=== PATIENT | male | born 1940 | race Caucasian/White ===

== ENCOUNTER 2017-08-19 13:30 | Observation (INO) | payer MEDICARE ==
[~2017-08-19] VITALS: Ht 188 cm; Wt 102.3 kg
[~2017-08-19 13:30] MED LIST: ALLOPURINOL300 M1 PO; ALTACE10 MG PO; CLOPIDOGREL75 M2 PO; COLCRYS0.6 M1 PO; ECOTRIN325 MG PO; FUROSEMIDE 20MG20 MG FT; ISOSORBIDE MONO30 MG PO; METOPROLOL25 MG PO
[2017-08-19 13:50] VITALS: BP 150/98
--- NOTE | 2017-08-19 14:19 | RADIOLOGY REPORT PS360 ---
CT HEAD W/O CONTRAST COMPARISON: None HISTORY: Right-sided weakness, severe headache TECHNIQUE: Multiaxial scans obtained from base skull to the vertex and were performed without contrast. FINDINGS: The base of skull is normal to mild chronic left-sided mastoiditis. The basilar cisterns are prominent. There is mild diffuse ventriculomegaly. The sylvian fissures and cortical sulci are. There are mild periventricular hypodensities consistent with chronic ischemic white changes. There is no ischemic infarct or bleed and there are no extra-axial fluid collections. Bony calvarium appears intact. IMPRESSION: Findings of moderate cortical atrophy and mild chronic white matter changes, no acute intracranial pathology noted .
--- NOTE | 2017-08-19 14:20 | RADIOLOGY REPORT PS360 ---
CHEST(2 VIEWS-NOT PORTABLE) COMPARISON: Portable upright chest 07/04/2016 HISTORY: Generalized weakness TECHNIQUE: PA and lateral chest FINDINGS: The lung sullivan are well expanded and appear clear of infiltrate. Is mild aortic tortuosity but no cardiomegaly. There are sternal wire sutures and surgical clips seen from previous bypass procedure. IMPRESSION: Nonacute chest findings
[2017-08-19 14:35] LABS: HEMOGLOBIN 14.9 g/dL (14.1-18.0); LYMPH # 2.2 K/mm3 (0.7-4.5); LYMPH % 40.4 % (10-50)
[2017-08-19 15:03] LABS: BUN 12 mg/dL (7-18)
--- NOTE | 2017-08-19 15:04 | Emergency Room Report ---
History of Present Illness Time Seen by MD Menjivar Presenting Problem in Triage Pt arrived:Walked Presenting Problem:RIGHT SIDED WEAKNESS, ONSET; CONFUSION, HEADACHE SUDDEN ONSET Onset of symptoms date/time:/ or onset unknown for:MEDICAL HX UNKNOWN Treatment Prior to Arrival: REGULATORY INTERNSHIP Provided by: Sepsis Risk Assessment: Temp: 97.8 B/P: 129/87 MAP: 115 Pulse: 55 Resp: 16 Recent fever? N Clinical Suspician of Infection? N Mental Status: 1 - Regular (Normal Baseline) Sepsis Risk:Low Sepsis Risk Have you (or family members/close friends) recently traveled outside the [place]? N If Yes, where/when: Have you had exposure to infectious disease within the past month? TB? Other? 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 He was brought to the Ed and underwent a stat ct scan with no acute findings. On my post CT exam there was no acute findings. his weakness has resolved and he had no focal deficites. Source patient, RN notes reviewed, family Exam Limitations no limitations ALLERGIES Coded Allergies: No Known Allergies (07/04/16) Home Medications Reported Medications Colchicine (Colcrys 0.6MG) 0.6 MG PO BID 30 Days CLOPIDOGREL BISULFATE (Clopidogrel) 75 MG PO DAILY 30 Days Isosorbide Mononitrate (Isosorbide Mononitrate ER) 30 MG PO DAILY 30 Days Allopurinol 300 MG PO DAILY 90 Days Furosemide (Furosemide) 40 MG FT DAILY PRN FLUID 30 Days Aspirin (Ecotrin 325MG Tab) 325 MG PO DAILY Metoprolol Tartrate (Metoprolol) 50 MG PO DAILY Ramipril (Altace 10MG) 10 MG PO DAILY History Medical History General Angina: Yes CO: Yes Hypertension? No Hyperlipidemia? No CHF? Yes COPD? No Asthma? No Hernia? No CVA? No Seizures? No Diabetes? No UTI? Yes Stones? No GB Disease: No Hepatitis? No Cataracts? No Glaucoma? No MRSA? No TB? No Cancer? No Immunization Hx Ped.Immunizations UTD Yes DT/Tetanus 5-10 YRS Surgical Hx Previous Surgery?Y Orthopedic Coronary Artery Bypass STENTS ANGIOPLASTY ANYEURISM Family History Family Hx Diabetes Yes CAD Yes Hypertension Yes Hyperlipidemia Yes Cancer No TB No Social History Smoking Hx Smoker: Never Smoker Tobacco: No Type N/A Are you/the child exposed to second-hand smoke: No Alcohol Alcohol: No Review of Systems All Other Systems Reviewed and Negative Constitutional no symptoms reported Eyes no symptoms reported ENT no symptoms reported. Respiratory no symptoms reported Cardiovascular no symptoms reported Gastrointestinal no symptoms reported Genitourinary no symptoms reported. Musculoskeletal no symptoms reported Skin no symptoms reported Psychiatric/Neurological see HPI, weakness Physical Exam Vital Signs Vital Signs Date Time Temp Pulse Resp B/P Pulse O2 O2 Flow FiO2 Ox Delivery Rate 08/19 1447 55 16 129/87 98 08/19 1350 97.8 56 18 150/98 97 - WBC >12,000 or <4,000 or 10% bands? 2 or more SIRS Criteria Met? B/P:129/87 MAP:115 Creatinine >2.0? UA output<0.5ml/kg/hr for 2 hrs? Platelet count >100,000? Lactate >2.0mmol/1? INR >1.2 or PTT > than 60 sec? Evidence of Organ Dysfunction? Provider documented clinical suspician of infection? N Sepsis Criteria Count: 0 Sepsis Risk: Low Sepsis Risk General Appearance normal appearance, WD/WN Eye Exam - bilateral eye normal exam, bilateral eye PERRL, bilateral eye EOMI Ear, Nose, Throat hearing grossly normal, normal ENT inspection Neck normal inspection, non-tender, supple, full range of motion Respiratory Status Yes: trachea midline, chest symmetrical, non tender chest. No: respiratory distress. Lung Sounds bilateral: normal breath sounds, lungs clear. 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 Reflexes Reflexes normal Yes Mental status normal mood/affect Skin intact, normal color, warm/dry Medical Decision Making LABS/Meds/Orders Pt receiving controlled substance in ED? No Results/Orders Laboratory Tests 08/19/17 1425: Sodium Pending, Potassium Pending, Chloride Pending, Carbon Dioxide Pending, BUN Pending, Creatinine Pending, Estimated Creat Clear Pending, Estimated GFR (MDRD) Pending, Glucose Pending, Calcium Pending, Total Bilirubin Pending, AST Pending, ALT Pending, Alkaline Phosphatase Pending, Creatine Kinase Pending, CK-MB (CK-2) Rel Index Pending, CK and CKMB Interp Pending, Troponin I Pending, Total Protein Pending, Albumin Pending, Globulin Pending, Albumin/Globulin Ratio Pending, WBC 5.5, RBC 4.66, Hgb 14.9, Hct 44.8, MCV 96.0, RDW 13.0, Plt Count 192, MPV 9.3, Gran % 45.5, Gran # 2.5, Lymphocytes % 40.4, Monocytes % 6.9, Eosinophils % 5.3, Basophils % 2.0, Lymphocytes # 2.2, Monocytes # 0.4, Eosinophils # 0.3, Basophils # 0.1, PUBS MCHC 33.3, MCH 32.0 H Current Medication Orders Sig/Jessi Start time Last Medication Dose Route Stop Time Status Admin Sodium Chloride 10 ML PRN PRN 08/19 1400 AC IV 08/20 1356 Orders Procedure Date/time Status DIET-NOTHING BY MOUTH 08/19 D Active ELECTROCARDIOGRAM REQUEST 08/[address] HEAD REQ 08/19 1356 Complete IV SALINE LOCK 08/19 1356 Active CBC WITH AUTO DIFF 08/19 1356 Complete CARDIAC ENZYMES 08/19 1356 Active CHEM 12 PROFILE 08/19 1356 Active 12 LEAD EKG-LINUS (INITIAL) 08/19 UNK Active CM/EKG CM/EKG EKG sinus bradycardia 51/m AV block and new LEFT bundle branch block. Departure Departure Time of Disposition 1501 Disposition Still a Patient Clinical Impression Primary Impression: TIA (transient ischemic attack) Secondary Impressions: CAD (coronary artery disease), Left bundle branch block ( LBBB) on electrocardiogram Condition STABLE Referrals Killian SMITH,A.C. (Family) Additional Instructions I discussed with the patient's family transferring him to [facility] stroke [facility] and they preferred to stay in [facility]. I contacted Dr. Srikanth Conley who agreed to admit the patient for observation and further workup. Discharge Counseling Counseled pt/family regarding diagnosis, test results, medications/RX, home care, follow up needs ED Critical Care Critical Care No If Critical Care minutes are documented, the time involved in the performance of seperately reportable procedures was not counted toward critical care time documented. I directly delivered medical care to this critically ill and/or injured patient. Timely evaluation and treatment was necessary to address the significant organ system(s) dysfunction present in this patient.
[2017-08-19 15:09] LABS: GFR (ESTIMATED) 73 ML/MIN (>60)
[2017-08-19 16:04] VITALS: BP 147/79
[2017-08-19 19:31] VITALS: BP 122/70
[2017-08-19 19:50] VITALS: BP 122/70
[2017-08-19 23:35] VITALS: BP 158/82
[2017-08-20 03:38] VITALS: BP 149/62
--- NOTE | 2017-08-20 07:06 | CARDIOVASCULAR REPORT ---
"Cerebrovascular Exam Indications: TIA 434.91. IMPRESSIONS 1. The bilateral vertebral arteries are patent with normal antegrade flow. 2. Study suggests 20-49% stenosis involving the right internal carotid artery and the left internal carotid artery, lower end of scale. Carotid duplex study. Complete study and Doppler flow study including spectral analysis, color and jarquin scale imaging. Height: Height: 188cm. Height: 74in. Weight: Weight: 103.4kg. Weight: 227.5lb. Body mass index: BMI: 29.3kg/m^2. Body surface area: BSA: 2.34m^2. Location: Vascular laboratory. Patient status: Outpatient. Tables: Arterial flow: + +--------+--------+ |Location |V sys |V ed | + +--------+--------+ |Right CCA - proximal|117cm/s |19.6cm/s| + +--------+--------+ |Right CCA - distal |85cm/s |15.2cm/s| + +--------+--------+ |Right ECA |116cm/s |--------| + +--------+--------+ |Right ICA - proximal|65.6cm/s|18.7cm/s| + +--------+--------+ |Right ICA - mid |89.3cm/s|29.2cm/s| + +--------+--------+ |Right ICA - distal |101cm/s |31.4cm/s| + +--------+--------+ |Right vertebral |40.3cm/s|--------| + +--------+--------+ |Left CCA - proximal |112cm/s |25.4cm/s| + +--------+--------+ |Left CCA - distal |82.7cm/s|18.7cm/s| + +--------+--------+ |Left ECA |120cm/s |--------| + +--------+--------+ |Left ICA - proximal |87.7cm/s|25.4cm/s| + +--------+--------+ |Left ICA - mid |109cm/s |34.7cm/s| + +--------+--------+ |Left ICA - distal |101cm/s |29.8cm/s| + +--------+--------+ |Left vertebral |59cm/s |--------| + +--------+--------+ Velocity ratios: + + + + + + | |Right, V sys|Right, V ed|Left, V sys|Left, V ed| + + + + + + |Max ICA/dist CCA|1.19 |2.07 |1.32 |1.86 | + + + + + + (Report amended ) Electronically signed by: Cristhian Waddell [id number]"
--- NOTE | 2017-08-20 07:34 | HISTORY AND PHYSICAL REPORT ---
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 Patient states he really couldn't get the RIGHT hand to work the way he wanted to. Later on in the morning he became disoriented. He expected symptoms to go away after resting but when symptoms did not resolve he presented to the emergency department. He also had associated head and neck ache. In the emergency department on initial assessment he had some mild RIGHT upper extremity weakness that by the time he returned from CT scan and motor function had improved. Blood pressure was not significantly elevated while in the emergency department. His headache persisted. CT scan was negative for intracranial hemorrhage. Patient was admitted for observation, neuro checks and further testing. Overnight the patient's headache has resolved. This morning he still complains of incoordination of the RIGHT hand and he does not feel like it has returned to full use. He is right-hand dominant Past medical history: Family HX Family Hx Insignificant No Diabetes Yes CAD Yes Hypertension Yes Hyperlipidemia Yes Cancer No TB No Immunization HX Ped.Immunizations UTD Yes DT/Tetanus 1-4 Years Ago Flu Refused Pneumonia Received In Past Other WITHIN THE LAST 5 YEARS TB Test in last year No General Angina: Yes [place]: Yes Hypertension? No Hyperlipidemia? No CHF? Yes COPD? No Asthma? No Hernia? No CVA? No Seizures? No Diabetes? No UTI? Yes Stones? No GB Disease: No Hepatitis? No Cataracts? No Glaucoma? No MRSA? No TB? No Cancer? No Past Surgical HX Previous Surgery?Y Orthopedic Coronary Artery Bypass STENTS ANGIOPLASTY ANYEURISM Current home meds: Reported Medications Colchicine (Colcrys 0.6MG) 0.6 MG PO BID 30 Days CLOPIDOGREL BISULFATE (Clopidogrel) 75 MG PO DAILY 30 Days Isosorbide Mononitrate (Isosorbide Mononitrate ER) 30 MG PO DAILY 30 Days Allopurinol 300 MG PO DAILY 90 Days Furosemide (Furosemide) 40 MG FT DAILY PRN FLUID 30 Days Aspirin (Ecotrin 325MG Tab) 325 MG PO DAILY Metoprolol Tartrate (Metoprolol) 50 MG PO DAILY Ramipril (Altace 10MG) 10 MG PO DAILY Social Hx: Smoking HX Tobacco No Type N/A Are you/the child exposed to second-hand smoke: No Alcohol Alcohol: No Hx of Drug Use Drug Use? No Patien't marital status is Patient's support system is good Review of systems: Constitutional no symptoms reported. Respiratory no symptoms reported. Cardiovascular no symptoms reported Gastrointestinal/Abdominal no symptoms reported Genitourinary no symptoms reported. Musculoskeletal see HPI. Neurological Yes: see HPI. Exam: Lab data for last 24 hours: Laboratory Tests 08/20/17 0315: Troponin I < 0.02, Triglycerides 317 H, Cholesterol 175, LDL Cholesterol 84.6, VLDL Cholesterol 63.4 H, HDL Cholesterol 27.0 L 08/19/17 2100: Troponin I < 0.02 08/19/17 1425: Sodium 139, Potassium 4.0, Chloride 105, Carbon Dioxide 27, BUN 12, Creatinine 1.0, Estimated Creat Clear 94, Estimated GFR (MDRD) 73, Glucose 184 H, Calcium 9.2, Total Bilirubin 0.6, AST 16, ALT 33, Alkaline Phosphatase 89, Creatine Kinase 156, CK-MB (CK-2) Rel Index 1.9, CK and CKMB Interp 2.9, Troponin I < 0.02, Total Protein 7.5, Albumin 4.3, Globulin 3.2, Albumin/Globulin Ratio 1.3, WBC 5.5, RBC 4.66, Hgb 14.9, Hct 44.8, MCV 96.0, RDW 13.0, Plt Count 192, MPV 9.3, Gran % 45.5, Gran # 2.5, Lymphocytes % 40.4, Monocytes % 6.9, Eosinophils % 5.3, Basophils % 2.0, Lymphocytes # 2.2, Monocytes # 0.4, Eosinophils # 0.3, Basophils # 0.1, PUBS MCHC 33.3, MCH 32.0 H Admission vital signs: 1ST Vital Signs Result Date Time Pulse Ox 97 08/19 1350 B/P 150/98 08/19 1350 Temp 97.8 08/19 1350 Pulse 56 08/19 1350 Resp 18 08/19 1350 O2 Delivery ROOM AIR 08/19 1604 Exam General appearance: normal appearance, alert, awake Eyes: normal exam, anicteric Cardiovascular: normal exam Respiratory: normal exam, clear to auscultation Musculoskeletal: decreased strength in RIGHT hand expressive therapist compared to LEFT. Mild decrease in RIGHT wrist extension strength compared to LEFT. Neuro: cranial nerves normal as tested. Cranial nerve I was not tested. Visual acuity was not tested. Patient has active range of motion in all extremities. No sensory deficit in the extremities. Patient has no pronator drift. He does have abnormal finger to nose test on the RIGHT. Normal rapid alternating movements of the hands. Plan: Problem List 1. CVA (cerebral vascular accident) 2. CAD (coronary artery disease) 3. Left bundle branch block (LBBB) on electrocardiogram Plan: Patient has persistent symptoms in the RIGHT hand nail 24 hours after onset of symptoms. Patient has had a small CVA. MRI and MRA of the brain will be ordered. OT consultation will be placed. Patient is already on aspirin and Plavix. at 0734
[2017-08-20 08:00] VITALS: BP 150/83
--- NOTE | 2017-08-20 08:31 | PHARMACY CLINIC NOTE ---
Patient Demographics Patient Demographics Admission date: 08/19/17 Date: 08/20/17 Time: 0831 Allergies Coded Allergies: No Known Allergies (07/04/16) HEIGHT- FT: 6 IN: 2.00 K.965 VTE General Information Labs: Laboratory Tests 08/19 1425 Hematology Hgb (14.1 - 18.0 g/dL) 14.9 Hct (42.0 - 52.0 %) 44.8 Plt Count (142 - 424 K/mm3) 192 Disclaimer The following section includes nursing documentation that has been pulled in for pharmacy review. Patient's VTE score: 1 Patient's VTE Risk: VERY LOW RISK Clinical trial participant? No VTE prophylaxis [facility] 0371 VTE prophylaxis ordered? Yes Type of prophylaxis/treatment: Lovenox at 0831
--- NOTE | 2017-08-20 08:31 | PHARMACY CLINIC NOTE ---
Patient Demographics Patient Demographics Admission date: 08/19/17 Date: 08/20/17 Time: 0831 Allergies Coded Allergies: No Known Allergies (07/04/16) HEIGHT- FT: 6 IN: 2.00 K.965 VTE General Information Labs: Laboratory Tests 08/19 1425 Hematology Hgb (14.1 - 18.0 g/dL) 14.9 Hct (42.0 - 52.0 %) 44.8 Plt Count (142 - 424 K/mm3) 192 Disclaimer The following section includes nursing documentation that has been pulled in for pharmacy review. Patient's VTE score: 1 Patient's VTE Risk: VERY LOW RISK Clinical trial participant? No VTE prophylaxis [facility] 0371 VTE prophylaxis ordered? Yes Type of prophylaxis/treatment: Lovenox at 0831
[2017-08-20 09:18] VITALS: BP 150/83
--- NOTE | 2017-08-20 12:32 | RADIOLOGY REPORT PS360 ---
MRI-BRAIN W/O HISTORY: Severe frontal headache, right arm and right-sided weakness CVA, RT HAND WEAKNESS ORDERING PHYSICIAN: Varun Conley MD PATIENT AGE: 77 years COMPARISON: CT head 08/19/2017 TECHNIQUE: Standard multiplanar multiecho sequences are performed without contrast. FINDINGS: There is a small cortical area of restricted diffusion with slight increased T2 signal measuring 7 mm in the cortex of the left posterior parietal lobe showing decrease ADC signal consistent with a small area of acute infarction. In addition, there are 2 small foci of restricted diffusion in the right parietal lobe at the parieto-occipital junction. These measure 3 and 4 mm also consistent with small foci of acute infarction. There is also a small focus of restricted diffusion posterior aspect of the left occipital lobe There is generalized atrophy. The occipital horn of the left lateral ventricle is more prominent than on the right side. This is of questionable clinical significance. This is chronic in nature have an a similar appearance on the previous sinus CT of 08/09/2015. No intracranial hemorrhage or mass effect. No intra or extra-axial mass. The cerebellopontine angles, cerebellum, and brainstem are unremarkable. No mastoid effusion or sinus air-fluid level. IMPRESSION: 1. Small foci of acute infarction in the left posterior parietal region, left occipital lobe, and also in the right posterior parietal region. Scattered bilateral foci suggest small embolic infarctions. 2. Generalized atrophy.
--- NOTE | 2017-08-20 12:36 | RADIOLOGY REPORT PS360 ---
MRA-HEAD W/O CLINICAL INDICATION: CVA, RT HAND WEAKNESS ORDERING PHYSICIAN: Varun Conley MD PATIENT AGE: 77 years COMPARISON: None TECHNIQUE: Axial [id number] images are obtained with 3-D reformats and single shot MRV FINDINGS: No aneurysm AVM or major intracranial occlusive process is evident. The basilar artery is fed solely by the left vertebral artery with right vertebral artery not identified. Single shot MRV shows no obvious sagittal sinus thrombosis. IMPRESSION: 1. 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 2. No aneurysm or major intracranial occlusive process of the [place]
--- NOTE | 2017-08-20 12:36 | RADIOLOGY REPORT PS360 ---
MRA-HEAD W/O CLINICAL INDICATION: CVA, RT HAND WEAKNESS ORDERING PHYSICIAN: Varun Conley MD PATIENT AGE: 77 years COMPARISON: None TECHNIQUE: Axial [id number] images are obtained with 3-D reformats and single shot MRV FINDINGS: No aneurysm AVM or major intracranial occlusive process is evident. The basilar artery is fed solely by the left vertebral artery with right vertebral artery not identified. Single shot MRV shows no obvious sagittal sinus thrombosis. IMPRESSION: 1. 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 2. No aneurysm or major intracranial occlusive process of the [place]
[2017-08-20 16:00] VITALS: BP 130/69
--- NOTE | 2017-08-20 16:44 | ACUTE CARE PROGRESS NOTE (QUA) ---
Progress Notes Subjective Date 08/20/17 Time 1642 Note Patient's MRI has shown multiple small foci of infarction. The infarction of the LEFT posterior parietal lobe is likely what is contributing to the RIGHT hand weakness. 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 Echocardiogram is been ordered but there is no result at this time. Patient is unclear about whether he ever experiences palpitations or rapid heart rate. Patient will be monitored overnight and we will await echocardiogram results to rule out ventricular thrombus. Objective Findings Last VS-Temp:97.1 B/P:130/69 Pulse:65 Resp:18 SaO2:97 ROOM AIR Last weight lbs:227 oz:0 K.967 Method:Bed Scales Assessment/Plan Problem List 1. CVA (cerebral vascular accident) 2. CAD (coronary artery disease) 3. Left bundle branch block (LBBB) on electrocardiogram Patient condition Stable This inpt stay is expected to cross 2 MNs from start of care Yes at 5122
[2017-08-20 19:05] VITALS: BP 139/69
[2017-08-20 19:33] VITALS: BP 139/69
--- NOTE | 2017-08-20 20:43 | RADIOLOGY REPORT PS360 ---
PROCEDURE: 2-D M-mode and color Doppler study INDICATIONS FOR THE TEST: Chest pain COPD Heart Murmur Tobacco Smoking Palpitations Fatigue Syncope Edema Hypertension+Diabetes Mellitus Rheumatic Fever SOB MENSAH Obesity Hyperlipidemia Family History HD Additional History CAD,CVA, AAA REPAIR, CABG, LBBB PATIENT INFORMATION HEIGHT: 75 WEIGHT:227 GENDER: Male B/P:150/98 2-D/M-MODE INTERPRETATION: 2-D MEASUREMENTS OBSERVED VALUES IN CMS Right Ventricular Dimension (RVDd) 2.5 Interventricular Septum (Thickness)(IVsd) 1.5 Left Ventricular Internal Dimensions(LVIDd) 4.5 Left Ventricular Posterior Wall (Thickness)(LVPWd) 1.0 Aortic Root 3.5 Aortic Cusp Separation 2.0 Left Atrial Dimensions (LAD) 4.9 2D 1. Left atrium is moderately enlarged, left ventricle is normal size, there is mild concentric left ventricular hypertrophy, visually estimated ejection fraction 50%, there is abnormal septal motion. 2. The right atrium and right ventricle are normal size with normal contractility. 3. The aortic valve is minimally thickened and fibrosed. Leaflet continue to display good mobility. 4. The mitral and tricuspid valve leaflets are minimally thickened. 5. The pulmonic valve is poorly visualized. 6. No significant pericardial effusion noted. DOPPLER INTERROGATION: Doppler interrogation of the aortic, mitral and tricuspid valvular presence of mild aortic, mild mitral and tricuspid regurgitation, tricuspid regurgitant jet velocity is insufficient for calculation of the right ventricular systolic pressure, grade 1 diastolic dysfunction seen with tissue Doppler evidence of raised left atrial pressure. CONCLUSION: 1. Moderately enlarged left atrium, normal left ventricular size, mild concentric left ventricular hypertrophy, visually estimated ejection fraction 55% with no obvious regional wall motion abnormality, grade 1 diastolic dysfunction seen with tissue Doppler evidence of raised left atrial pressure. 2. Mild aortic, mild mitral and tricuspid regurgitation, tricuspid and jet velocity insufficient for calculation of the right ventricular systolic pressure. 3. No significant pericardial effusion noted.
[2017-08-21 04:18] VITALS: BP 142/59
[2017-08-21] MEDS ORDERED: TOPROL XL 25MG25 MG PO (06:59)
--- NOTE | 2017-08-21 06:59 | Discharge Summary ---
Demographics Admit date: 08/19/17 Discharge date: 08/21/17 Discharge diagnoses Problem List 1. CVA (cerebral vascular accident) 2. CAD (coronary artery disease) 3. 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 Patient states he really couldn't get the RIGHT hand to work the way he wanted to. Later on in the morning he became disoriented. He expected symptoms to go away after resting but when symptoms did not resolve he presented to the emergency department. He also had associated head and neck ache. In the emergency department on initial assessment he had some mild RIGHT upper extremity weakness that by the time he returned from CT scan and motor function had improved. Blood pressure was not significantly elevated while in the emergency department. His headache persisted. CT scan was negative for intracranial hemorrhage. Patient was admitted for observation, neuro checks and further testing. Overnight the patient's headache has resolved. This morning he still complains of incoordination of the RIGHT hand and he does not feel like it has returned to full use. He is right-hand dominant Patient was admitted. Symptoms of RIGHT hand weakness and incoordination persisted during hospitalization. 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 Echocardiogram did not reveal any valvular vegetations nor ventricular thrombus. Telemetry monitoring showed first degree AV block. Occupational therapy was consult to and demonstrated some exercises for the patient to use. Once evaluation was complete and patient was stable he was discharged to home. Patient will continue Plavix. He will follow-up in my office in one week Medications Medications: Discharge meds are as noted. Follow up Follow up in office in: 7 DAYS with: Varun Conley MD at [phone]
[2017-08-21 08:00] VITALS: BP 105/79
[2017-08-21 08:52] VITALS: BP 105/79
[2017-08-21 10:30] VITALS: BP 105/79
--- OUTSIDE RECORDS SUMMARY | 2017-08-24 19:54 | External Medical Summary Rpt | CCD ---
Author Author , ANGEL OTERO Address Unknown Phone [email or web address] Purpose Continuity of Care Document - through 2016
--- OUTSIDE RECORDS SUMMARY | 2017-08-24 19:54 | External Medical Summary Rpt | CCD ---
Author Author , ANGEL OTERO Address Unknown Phone [email or web address] Purpose Continuity of Care Document - through 2016
--- OUTSIDE RECORDS SUMMARY | 2017-08-24 19:54 | External Medical Summary Rpt ---
Author Author SHANNA Cárdenas, [employer] Organization [employer] Address Unknown Phone Unavailable
--- OUTSIDE RECORDS SUMMARY | 2017-08-24 19:54 | External Medical Summary Rpt | CCD ---
Author Author [employer] Organization [employer] Address Unknown Phone Unavailable Purpose Continuity of Care Document - through 2016
--- OUTSIDE RECORDS SUMMARY | 2017-08-24 19:54 | External Medical Summary Rpt | CCD ---
Demographics Preferred Language Maori Marital Status Unknown Buddhist Affiliation Unknown Race Unknown Ethnic Group Unknown Author Author , SHANNA OTERO Address Unknown Phone [email or web address] Immunization Name Date Rout CVX Reac Dose Comm Prov Is Faci e tion ent ider Refu lity Give sed n Td 03-0 9 999 Hist H149 No H149 (jeanna 5-19 oric lt), 97 al Info adso rmat rbed ion - Sour ce Unsp ecif ied
--- OUTSIDE RECORDS SUMMARY | 2017-08-24 19:54 | External Medical Summary Rpt | CCD ---
Demographics Preferred Language Greenlandic Marital Status Unknown Yarsanism Affiliation Unknown Race Unknown Ethnic Group Unknown Author Author , SHANNA OTERO Address Unknown Phone [email or web address] Immunization Name Date Rout CVX Reac Dose Comm Prov Is Faci e tion ent ider Refu lity Give sed n Td 03-0 9 999 Hist H149 No H149 (jeanna 5-19 oric lt), 97 al Info adso rmat rbed ion - Sour ce Unsp ecif ied
--- OUTSIDE RECORDS SUMMARY | 2017-08-24 20:17 | External Medical Summary Rpt | CCD ---
Demographics Preferred Language Lithuanian Marital Status Unknown Roman Catholic Affiliation Unknown Race Unknown Ethnic Group Unknown Author Author , SHANNA OTERO Address Unknown Phone [email or web address] Immunization Name Date Rout CVX Reac Dose Comm Prov Is Faci e tion ent ider Refu lity Give sed n Td 03-0 9 999 Hist H149 No H149 (jeanna 5-19 oric lt), 97 al Info adso rmat rbed ion - Sour ce Unsp ecif ied
--- OUTSIDE RECORDS SUMMARY | 2017-08-24 20:17 | External Medical Summary Rpt | CCD ---
Author Author , SHANNA Organization SHANNA Address Unknown Phone [email or web address] Purpose Continuity of Care Document - 08-19-2017 through 2016 Results Labs Lab Lab Date Result Refere Interp Status Commen Order Detail nces retati t Range on CBC w auto diff (08-19-2017 14:25) Automat = 0.1 0-0.2 complet ed 017 K/MM3 ed blood 14:25 basophi l count (count/ vo Baso % = 2.0 % 0.1-2.0 complet 017 ed 14:25 Automat = 0.3 0.0-0.4 complet ed 017 K/mm3 ed blood 14:25 eosinop hil count Automat = 5.3 % 0.1-12. complet ed 017 0 ed blood 14:25 eosinop hils/10 0 leukocy t Blood = 2.5 1.3-8.0 complet granulo 017 K/mm3 ed cytes 14:25 automat ed count (numb Granulo = 45.5 37.0-80 complet cyte 017 % .0 ed percent 14:25 age Blood = 44.8 42.0-52 complet hematoc 017 % .0 ed rit 14:25 (volume fractio n) Blood = 14.9 14.1-18 complet hemoglo 017 g/dL .0 ed bin 14:25 measure ment (mass/v olum Absolut = 2.2 0.7-4.5 complet e 017 K/mm3 ed lymphoc 14:25 yte count Lymphoc = 40.4 10-50 complet yte 017 % ed count, 14:25 blood, automat ed Mean = 32.0 27-31.2 complet corpusc 017 pg ed ular 14:25 hemoglo bin (MCH) determ Automat = 33.3 31.8-35 complet ed 017 g/dl .4 ed erythro 14:25 cyte mean corpusc ular h Automat = 96.0 82.2-97 complet ed 017 fl .8 ed erythro 14:25 cyte mean corpusc ular v Absolut = 0.4 0.1-1.0 complet e 017 K/mm3 ed monocyt 14:25 e count [place] % = 6.9 % 1.7-9.3 complet 017 ed 14:25 Automat = 9.3 7.4-10. complet ed 017 fl 4 ed blood 14:25 platele t mean volume sudha Blood = 192 142-424 complet platele 017 K/mm3 ed t count 14: Red = 4.66 4.6-6.2 complet blood 017 M/mm3 ed cell 14: count Automat = 13.0 11.5-17 complet ed 017 % .5 ed erythro 14:25 cyte distrib ution width Blood = 5.5 4.8-10. complet leukocy 017 K/MM3 8 ed yenny 14:25 count (number /volume )
--- OUTSIDE RECORDS SUMMARY | 2017-08-24 20:17 | External Medical Summary Rpt ---
Author Author ANNITAMARIUM Cárdenas, [employer] Organization [employer] Address Unknown Phone Unavailable Results CBC W Auto Differential panel in Blood Observa Value Referen Units Interpr Notes Date tion ce etation Range Basophils 0 - 0.2 K/MM3 Normal No Aug 19 informati 2016 2:25 [#/volume on in PM ] in source Blood by data Automated count Basophils 0.1 - 2.0 % Normal No Aug 19 informati 2016 2:25 leukocyte on in PM s in source Blood by data Automated count Eosinophi 0.0 - 0.4 K/mm3 Normal No Aug 19 ls informati 2016 2:25 [#/volume on in PM ] in source Blood by data Automated count Eosinophi 0.1 - % Normal No Aug 19 ls/100 12.0 informati 2016 2:25 leukocyte on in PM s in source Blood by data Automated count Granulocy 1.3 - 8.0 K/mm3 Normal No Aug 19 yenny informati 2016 2:25 [#/volume on in PM ] in source Blood by data Automated count Granulocy 37.0 - % Normal No Aug 19 yenny/100 80.0 informati 2016 2:25 leukocyte on in PM s in source Blood by data Automated count Hematocri 42.0 - % Normal No Aug 19 t [Volume 52.0 informati 2016 2:25 on in PM Fraction] source of Blood data Hemoglobi 14.1 - g/dL Normal No Aug 19 n 18.0 informati 2016 2:25 [Mass/vol on in PM ume] in source Blood data Lymphocyt 0.7 - 4.5 K/mm3 Normal No Aug 19 es informati 2016 2:25 [#/volume on in PM ] in source Unspecifi data ed specimen by Automated count Lymphocyt 10 - 50 % Normal No Aug 19 es informati 2016 2:25 [#/volume on in PM ] in source Unspecifi data ed specimen by Automated count Erythrocy 27 - 31.2 pg High No Aug 19 te mean informati 2016 2:25 corpuscul on in PM ar source hemoglobi data n [Entitic mass] Erythrocy 31.8 - g/dl Normal No Aug 8 te mean 35.4 informati 2016 2:25 corpuscul on in PM ar source hemoglobi data n concentra tion [Mass/vol ume] by Automated count Erythrocy 82.2 - fl Normal No Aug 8 te mean 97.8 informati 2016 2:25 corpuscul on in PM ar volume source [Entitic data volume] by Automated count Monocytes 0.1 - 1.0 K/mm3 Normal No Aug 8 informati 2016 2:25 [#/volume on in PM ] in source Blood by data Automated count Monocytes 1.7 - 9.3 % Normal No Aug 8 /100 informati 2017 2:25 leukocyte on in PM s in source Blood by data Automated count Platelet 7.4 - fl Normal No Aug 8 mean 10.4 informati 2016 2:25 volume on in PM [Entitic source volume] data in Blood by Automated count Platelets 142 - 424 K/mm3 Normal No Aug 8 informati 2016 2:25 [#/volume on in PM ] in source Blood data Erythrocy 4.6 - 6.2 M/mm3 Normal No Aug 8 yenny informati 2016 2:25 [#/volume on in PM ] in source Amniotic data fluid Erythrocy 11.5 - % Normal No Aug 8 te 17.5 informati 2016 2:25 distribut on in PM ion width source [Entitic data volume] by Automated count Leukocyte 4.8 - K/MM3 Normal No Aug 8 s 10.8 informati 2016 2:25 [#/volume on in PM ] in source Blood data
--- OUTSIDE RECORDS SUMMARY | 2017-08-24 20:17 | External Medical Summary Rpt | CCD ---
Demographics Preferred Language Telugu Marital Status Unknown Anabaptist Affiliation Unknown Race Unknown Ethnic Group Unknown Author Author , SHANNA OTERO Address Unknown Phone [email or web address] Immunization Name Date Rout CVX Reac Dose Comm Prov Is Faci e tion ent ider Refu lity Give sed n Td 03-0 9 999 Hist H149 No H149 (jeanna 5-19 oric lt), 97 al Info adso rmat rbed ion - Sour ce Unsp ecif ied
--- OUTSIDE RECORDS SUMMARY | 2017-08-24 20:17 | External Medical Summary Rpt | CCD ---
Author Author , SHANNA Organization [employer]AN[employer] Address Unknown Phone [email or web address] Purpose Continuity of Care Document - 08-19-2017 [...] 017 K/mm3 ed monocyt 14:25 e count [place] % = 6.9 % 1.7-9.3 complet 017 [...]
== END 2017-08-21 11:30 ==
LOC: ER 13:30 → 2ND 15:07 → ER 15:07 → 2ND 15:17
PROVIDERS: Emergency Medicine
DX: I63.212 Cerebral infarction due to unspecified occlusion or stenosis of left vertebral artery (principal); G83.21 Monoplegia of upper limb affecting right dominant side; I25.10 Atherosclerotic heart disease of native coronary artery without angina pectoris; I44.7 Left bundle-branch block, unspecified; I25.2 Old myocardial infarction; I50.9 Heart failure, unspecified; Z95.5 Presence of coronary angioplasty implant and graft; Z95.1 Presence of aortocoronary bypass graft; Z79.02 Long term (current) use of antithrombotics/antiplatelets; Z79.82 Long term (current) use of aspirin; Z79.899 Other long term (current) drug therapy; Z23 Encounter for immunization
CPT/HCPCS: G0378; Q2038